=== PATIENT | female | born 1945 | race Caucasian/White ===

== ENCOUNTER 2016-12-28 09:57 | Outpatient (CLI) | payer OTHER, MEDICARE ==
[~2016-12-28 09:57] MED LIST: LATANOPROST0.005 % OP; OMEPRAZOLE20 M1 PO; VITAMIN D-32000 UNIT PO; ZOFRAN ODT4 MG PO
--- NOTE | 2016-12-28 11:17 | DIAGNOSTIC IMAGING REPORT ---
PROCEDURE: MG BILATERAL SCREENING W/CAD INDICATION: Screening. Family history breast carcinoma (sister). TECHNIQUE: Bilateral CC and MLO digital views. COMPARISON: Compared to 11/11/2014, 08/20/2013, and 09/27/2011. FINDINGS: Computer-aided detection applied. Mildly dense. No change. IMPRESSION: 1. Negative mammogram RESULT CODE: 1- Negative. A. A negative report should not delay biopsy if a dominant or clinically suspicious mass is present. 10-15% of cancers are not identified by x-ray. B. A negative report may reinforce clinical impression. C. Adenosis and dense breasts may obscure an underlying neoplasm. D. False positive reports average 6-10%. E.. A yearly screening mammogram is recommended. A reminder letter will be scheduled.
== END 2016-12-28 23:00 ==
LOC: MAM SRH 09:57
DX: Z12.31 Encounter for screening mammogram for malignant neoplasm of breast (principal); Z80.3 Family history of malignant neoplasm of breast

== ENCOUNTER 2017-01-17 09:55 | Outpatient (CLI) | payer OTHER, MEDICARE ==
--- NOTE | 2017-01-17 11:07 | DIAGNOSTIC IMAGING REPORT ---
PROCEDURE: DEXA BONE DENSITY STUDY CLINICAL INDICATION: MENOPAUSE COMPARISON: None. FINDINGS: LUMBAR SPINE: Bone mineral density 0.779 g/cm2, T score -2.4 osteopenia LEFT HIP: Bone mineral density 0.836 g/cm2, T score -0.9 normal LEFT FEMORAL NECK: Bone mineral density 0.651 g/cm2, T score -1.8 osteopenia FRACTURE RISK CALCULATION ( when applicable): 10-year fracture risk of a major osteoporotic fracture 10% and of a hip fracture 1.6% (T score greater or equal to -1.0 to: NORMAL) (T score from -1.1 to -2.4: OSTEOPENIA) (T score ess than or equal to -2.5: OSTEOPOROSIS) IMPRESSION: 1. Osteopenia lumbar spine and femoral neck with a 10-year major fracture risk of 10% and a hip fracture risk of 1.6%
== END 2017-01-17 23:00 ==
LOC: XR SRH 09:55
DX: M85.88 Other specified disorders of bone density and structure, other site (principal)